=== PATIENT | female | born 1970 | race African-American/Black ===

== ENCOUNTER 2017-06-24 18:06 | Emergency (ER) | payer OTHER ==
[~2017-06-24] VITALS: Ht 165.1 cm; Wt 80.0 kg
[2017-06-24] MEDS ORDERED: QUET25TA PO (18:09)
[2017-06-24] MEDS ORDERED: ALD50 PO (18:09)
[2017-06-24] MEDS ORDERED: SODIUM CHLORIDE 0.9% 1,000 ML IV ONE (19:46)
[2017-06-24] MEDS ORDERED: LORAZEPAM 2MG/ML CPJ IV STA (19:46)
[2017-06-24 20:36] LABS: BG BASE EXCESS -1.5 mmol/L (-2.0-2.0); BG CARBOXYHEMOGLOBIN 0.8 % (0.5-1.5); BG DEOXYHEMOGLOBIN 3.9 % (0.0-5.0); BG FRACTION INSPIRED OXYGEN 21; BG HCO3 ACT 23.5 mmol/L (22.0-26.0); BG METHEMOGLOBIN 0.1 % (0.0-1.5); BG OXYGEN SATURATION 96.1 % (92.0-98.5); BG OXYHEMOGLOBIN 95.2 % (94.0-97.0); BG PCO2 40.7 mmHg (35.0-45.0); BG PH 7.379 (7.350-7.450); BG PO2 86.8 mmHg (75.0-100.0); BG SAMPLE SITE LEFT BRACHIAL; BG TOTAL HEMOGLOBIN 14.3 g/dL (12.0-18.0); BG VENT MODE ROOM AIR
[2017-06-24 21:12] LABS: KETONES URINE NEGATIVE (NEGATIVE); LEUKOCYTE ESTERASE URINE NEGATIVE (NEGATIVE); NITRITE URINE NEGATIVE (NEGATIVE); OCCULT BLOOD URINE NEGATIVE (NEGATIVE); PROTEIN URINE NEGATIVE (NEGATIVE); SPECIFIC GRAVITY URINE 1.024 (1.005-1.030); UROBILINOGEN URINE 0.2 E.U./dL (0.2-1.0)
[2017-06-24 21:14] LABS: BASOPHILS % 0.5 % (0.0-2.0); EOSINOPHILS % 1.6 % (0.0-5.0); HEMATOCRIT. 38.4 % (36.0-48.0); HEMOGLOBIN. 13.1 g/dL (12.0-16.0); LYMPHOCYTES % 26.1 % (20.0-50.0); MEAN CORPUSCULAR HEMOGLOBIN 31.8 pg (28.0-32.0); MEAN CORPUSCULAR VOLUME 93.2 fL (81.0-99.0); MEAN PLATELET VOLUME 8.6 fl (7.4-10.4); MONOCYTES % 12.6 % (2.0-8.0); NEUTROPHILS % 59.2 % (40.0-76.0); PLATELET 192 x1000/uL (130-400); RED BLOOD CELL COUNT 4.11 mill/uL (4.2-5.4); RED CELL DISTRIBUTION WIDTH 13.7 % (11.6-14.6)
[2017-06-24 21:16] LABS: CLARITY URINE CLEAR (CLEAR); COLOR URINE YELLOW (YELLOW)
[2017-06-24 21:16] LABS: CHLORIDE 106 mEq/L (98-107); INR 1.1
[2017-06-24 21:19] LABS: AMMONIA < 25 uMol/L (<32); ETHANOL BLOOD < 10 mg/dL
[2017-06-24 21:24] LABS: HCG SCREEN NEGATIVE
[2017-06-24 21:24] LABS: *AMPHETAMINES SCREEN URINE NEGATIVE (NEGATIVE); *BARBITURATES SCREEN URINE NEGATIVE (NEGATIVE); *BENZODIAZEPINES SCREEN URINE NEGATIVE (NEGATIVE); *COCAINE SCREEN URINE NEGATIVE (NEGATIVE); CANNABINOID URINE SCREEN NEGATIVE (NEGATIVE); METHADONE URINE SCREEN NEGATIVE (NEGATIVE); OPIATES URINE SCREEN NEGATIVE (NEGATIVE); PHENCYCLIDINE URINE SCREEN NEGATIVE (NEGATIVE)
[2017-06-24 21:26] LABS: CREATINE KINASE 960 IU/L (26-192)
[2017-06-25 17:18] VITALS: BP 134/86
== END 2017-06-25 17:35 | disposition home or self-care (01) ==
LOC: ER 18:37
DX: T43.591A Poisoning by other antipsychotics and neuroleptics, accidental (unintentional), initial encounter (principal); G92 Toxic encephalopathy; M62.82 Rhabdomyolysis; I10 Essential (primary) hypertension; F32.9 Major depressive disorder, single episode, unspecified; Y92.018 Other place in single-family (private) house as the place of occurrence of the external cause
CPT/HCPCS: 36415; 36600; 71045; 80053; 80305; 80307; 80329; 81003; 82140; 82375; 82550; 82805; 83880; 84443; 84484; 84703; 85025; 85610; 93005; 96361; 96374; 99285; G0482; J2060; J7030

== ENCOUNTER 2017-08-07 18:14 | Emergency (ER) | payer OTHER ==
[~2017-08-07] VITALS: Ht 165.1 cm; Wt 91.0 kg
[~2017-08-07 18:14] MED LIST: ALD50 PO; QUET25TA PO
[2017-08-07 18:27] VITALS: BP 119/74
[2017-08-07] MEDS ORDERED: IBUPROFEN 600MG TABLET PO ONE (18:30)
== END 2017-08-07 23:24 | disposition left against medical advice (07) ==
LOC: ER 18:14
DX: R51 Headache (principal); Y04.0XXA Assault by unarmed brawl or fight, initial encounter
CPT/HCPCS: 99282

== ENCOUNTER 2017-08-08 00:46 | Emergency (ER) | payer SELFPAY ==
[~2017-08-08] VITALS: Ht 165.1 cm; Wt 91.0 kg
[2017-08-08] MEDS ORDERED: IBUPROFEN 600MG TABLET PO ONE (06:15)
[2017-08-08 07:05] LABS: CHLORIDE 102 mEq/L (98-107); HEMOGLOBIN. 13.4 g/dL (12.0-16.0); MEAN CORPUSCULAR HEMOGLOBIN 31.5 pg (28.0-32.0); MEAN CORPUSCULAR VOLUME 91.7 fL (81.0-99.0); MEAN PLATELET VOLUME 8.5 fl (7.4-10.4); PLATELET 215 x1000/uL (130-400); RED BLOOD CELL COUNT 4.25 mill/uL (4.2-5.4); RED CELL DISTRIBUTION WIDTH 14.2 % (11.6-14.6)
[2017-08-08 07:22] LABS: HCG SCREEN NEGATIVE
[2017-08-08 07:25] LABS: PLATELET ESTIMATE NORMAL
[2017-08-08 10:37] VITALS: BP 115/62
== END 2017-08-08 10:38 | disposition home or self-care (01) ==
LOC: ER 00:46
DX: G44.309 Post-traumatic headache, unspecified, not intractable (principal); R53.1 Weakness; I10 Essential (primary) hypertension; F32.9 Major depressive disorder, single episode, unspecified
CPT/HCPCS: 36415; 70450; 80048; 81025; 84703; 85025; 99285

== ENCOUNTER 2017-08-23 08:53 | Emergency (ER) | payer OTHER ==
[~2017-08-23] VITALS: Ht 167.6 cm; Wt 80.0 kg
[2017-08-23] MEDS ORDERED: ASPIRIN 81MG TABLET PO ONE (09:45)
[2017-08-23 09:54] LABS: HEMATOCRIT. 39.9 % (36.0-48.0); HEMOGLOBIN. 13.8 g/dL (12.0-16.0); MEAN CORPUSCULAR HEMOGLOBIN 31.8 pg (28.0-32.0); MEAN CORPUSCULAR VOLUME 91.5 fL (81.0-99.0); MEAN PLATELET VOLUME 8.7 fl (7.4-10.4); PLATELET 232 x1000/uL (130-400); RED BLOOD CELL COUNT 4.36 mill/uL (4.2-5.4); RED CELL DISTRIBUTION WIDTH 14.1 % (11.6-14.6)
[2017-08-23 10:00] LABS: CHLORIDE 105 mEq/L (98-107)
[2017-08-23 10:03] LABS: ETHANOL BLOOD < 10 mg/dL
[2017-08-23 10:20] LABS: PLATELET ESTIMATE NORMAL
[2017-08-23 10:20] LABS: CLARITY URINE CLOUDY (CLEAR); COLOR URINE YELLOW (YELLOW); KETONES URINE TRACE (NEGATIVE); LEUKOCYTE ESTERASE URINE TRACE (NEGATIVE); NITRITE URINE NEGATIVE (NEGATIVE); OCCULT BLOOD URINE NEGATIVE (NEGATIVE); PH URINE 6.5 (4.5-8.0); PROTEIN URINE NEGATIVE (NEGATIVE)
[2017-08-23 10:33] LABS: *AMPHETAMINES SCREEN URINE NEGATIVE (NEGATIVE); *BARBITURATES SCREEN URINE NEGATIVE (NEGATIVE)
[2017-08-23 10:34] LABS: *BENZODIAZEPINES SCREEN URINE NEGATIVE (NEGATIVE); *COCAINE SCREEN URINE NEGATIVE (NEGATIVE); CANNABINOID URINE SCREEN NEGATIVE (NEGATIVE); METHADONE URINE SCREEN NEGATIVE (NEGATIVE); OPIATES URINE SCREEN NEGATIVE (NEGATIVE); PHENCYCLIDINE URINE SCREEN NEGATIVE (NEGATIVE)
[2017-08-23 11:20] VITALS: BP 127/72
[2017-08-23] MEDS ORDERED: IBUPROFEN 400MG TABLET PO ONE (13:30)
== END 2017-08-23 13:43 | disposition home or self-care (01) ==
LOC: ER 09:19
DX: R07.9 Chest pain, unspecified (principal); Z79.82 Long term (current) use of aspirin
CPT/HCPCS: 36415; 80053; 80305; 80307; 80329; 81003; 81025; 83880; 84484; 85025; 93005; 99285; G0482; Z7610

== ENCOUNTER 2018-07-27 11:13 | Emergency (ER) | payer OTHER, SELFPAY ==
[~2018-07-27] VITALS: Ht 167.6 cm; Wt 80.0 kg
[2018-07-27] MEDS ORDERED: ZIPRASIDONE MESYLATE 20MG/VIAL IM ONE (11:30)
[2018-07-27] MEDS ORDERED: DIPHENHYDRAMINE 50MG/ML VIAL IM ONE (11:30)
[2018-07-27] MEDS ORDERED: LORAZEPAM 2MG/ML CPJ IM ONE ×2 (11:30→16:15)
[2018-07-27] MEDS ORDERED: DIPHENHYDRAMINE 50MG/ML VIAL ONE (11:41)
[2018-07-27 11:57] LABS: HEMATOCRIT. 37.1 % (36.0-48.0); HEMOGLOBIN. 12.6 g/dL (12.0-16.0); MEAN CORPUSCULAR HEMOGLOBIN 31.8 pg (28.0-32.0); MEAN CORPUSCULAR VOLUME 93.3 fL (81.0-99.0); MEAN PLATELET VOLUME 9.4 fl (7.4-10.4); PLATELET 210 x1000/uL (130-400); RED BLOOD CELL COUNT 3.98 mill/uL (4.2-5.4); RED CELL DISTRIBUTION WIDTH 14.3 % (11.6-14.6)
[2018-07-27 12:02] LABS: CHLORIDE 104 mEq/L (98-107)
[2018-07-27 12:07] LABS: ETHANOL BLOOD < 10 mg/dL
[2018-07-27] MEDS ORDERED: LORAZEPAM 2MG/ML CPJ IV ONE (12:15)
[2018-07-27 12:29] LABS: PLATELET ESTIMATE NORMAL
[2018-07-27 14:20] LABS: *AMPHETAMINES SCREEN URINE NEGATIVE (NEGATIVE); *BARBITURATES SCREEN URINE NEGATIVE (NEGATIVE); *BENZODIAZEPINES SCREEN URINE NEGATIVE (NEGATIVE); *COCAINE SCREEN URINE NEGATIVE (NEGATIVE)
[2018-07-27 14:21] LABS: CANNABINOID URINE SCREEN NEGATIVE (NEGATIVE); METHADONE URINE SCREEN NEGATIVE (NEGATIVE); OPIATES URINE SCREEN NEGATIVE (NEGATIVE); PHENCYCLIDINE URINE SCREEN NEGATIVE (NEGATIVE)
[2018-07-28] MEDS ORDERED: LORAZEPAM 2MG/ML CPJ IV ONE (04:15)
[2018-07-28 17:27] VITALS: BP 151/99
== END 2018-07-28 17:30 | disposition home or self-care (01) ==
LOC: ER 11:13
DX: F23 Brief psychotic disorder (principal); Z79.899 Other long term (current) drug therapy
CPT/HCPCS: 36415; 80048; 80305; 80307; 80320; 80329; 81025; 85025; 93005; 96372; 96374; 96376; 99284; J1200; J2060; J3486; Z7610; G0480

== ENCOUNTER 2023-06-27 14:48 | Emergency (ER) | payer OTHER ==
[~2023-06-27] VITALS: Ht 167.6 cm; Wt 120.0 kg
[2023-06-27 14:51] VITALS: O2SAT 100
[2023-06-27 16:20] LABS: BASOPHILS % 0.6 % (0.0-2.0); EOSINOPHILS % 0.8 % (0.0-5.0); HEMATOCRIT. 40.2 % (36.0-48.0); HEMOGLOBIN. 13.9 g/dL (12.0-16.0); LYMPHOCYTES % 22.3 % (20.0-50.0); MEAN CORPUSCULAR HEMOGLOBIN 32.1 pg (28.0-32.0); MEAN CORPUSCULAR HGB CONC 34.6 g/dL (31.0-37.0); MEAN CORPUSCULAR VOLUME 92.8 fL (81.0-99.0); MEAN PLATELET VOLUME 8.7 fl (7.4-10.4); MONOCYTES % 12.4 % (2.0-8.0); NEUTROPHILS % 63.9 % (40.0-76.0); PLATELET 273 x1000/uL (130-400); RED BLOOD CELL COUNT 4.33 mill/uL (4.2-5.4); RED CELL DISTRIBUTION WIDTH 15.1 % (11.6-14.6); WHITE BLOOD COUNT 8.2 x1000/uL (4.5-11.0)
[2023-06-27 16:30] LABS: ALANINE AMINOTRANSFERASE 22 IU/L (10-49); ALBUMIN 4.6 g/dL (3.2-4.8); ASPARTATE AMINOTRANSFERASE 38 IU/L (<34); BILIRUBIN TOTAL 0.3 mg/dL (0.1-1.0); CALCIUM 9.8 mg/dL (8.7-10.4); CARBON DIOXIDE 25 mEq/L (21-32); CHLORIDE 104 mEq/L (98-107); CREATININE 1.4 mg/dL (0.6-1.0); GLUCOSE 138 mg/dL (70-105); POTASSIUM 4.7 mEq/L (3.5-5.1); PROTEIN TOTAL 8.1 g/dL (6.0-8.3); SODIUM 137 mEq/L (136-145); UREA NITROGEN BLOOD 31 mg/dL (9-23)
[2023-06-27 16:31] LABS: ETHANOL BLOOD < 10 mg/dL (<10)
[2023-06-28 11:05] LABS: CLARITY URINE CLEAR (CLEAR); COLOR URINE YELLOW (YELLOW); GLUCOSE URINE NEGATIVE (NEGATIVE); KETONES URINE TRACE (NEGATIVE); LEUKOCYTE ESTERASE URINE TRACE (NEGATIVE); NITRITE URINE NEGATIVE (NEGATIVE); OCCULT BLOOD URINE 2+ (NEGATIVE); PH URINE 6.5 (4.5-8.0); PROTEIN URINE TRACE (NEGATIVE); SPECIFIC GRAVITY URINE 1.026 (1.005-1.030); UROBILINOGEN URINE 0.2 E.U./dL (0.2-1.0)
[2023-06-28 11:48] LABS: *AMPHETAMINES SCREEN URINE NEGATIVE (NEGATIVE); *BARBITURATES SCREEN URINE NEGATIVE (NEGATIVE); *BENZODIAZEPINES SCREEN URINE NEGATIVE (NEGATIVE); *COCAINE SCREEN URINE NEGATIVE (NEGATIVE); CANNABINOID URINE SCREEN NEGATIVE (NEGATIVE); ECSTASY MDMA SCREEN URINE NEGATIVE (NEGATIVE); METHADONE URINE SCREEN Neg (NEGATIVE); OPIATES URINE SCREEN NEGATIVE (NEGATIVE); PHENCYCLIDINE URINE SCREEN NEGATIVE (NEGATIVE)
[2023-06-28 11:55] LABS: SQUAMOUS EPITHELIAL CELL URINE 3+ /lpf (RARE/1+)
[2023-06-28 11:57] LABS: BACTERIA URINE 2+
[2023-06-28] MEDS: LORAZEPAM 1MG TABLET PO NR (15:36)
[2023-06-28] MEDS: ARIPIPRAZOLE 5MG TABLET PO SCH (15:36)
[2023-06-29 00:41] VITALS: BP 111/53; PULSE 75; RESP 14; TEMP 97.9
== END 2023-06-29 01:07 ==
LOC: ER 14:48
DX: F31.9 Bipolar disorder, unspecified (principal)
CPT/HCPCS: 36415; 80053; 80320; 85025; 99285; G0480